=== PATIENT | male | born 1965 ===

== ENCOUNTER 2017-09-24 13:39 | Emergency (ER) | payer OTHER ==
[2017-09-24 13:40] VITALS: BMI 32.4
[2017-09-24 14:18] VITALS: TEMP 98.9
--- NOTE | 2017-09-24 15:13 | ED PDOC ---
Arrival/HPI - General Chief Complaint: Upper Extremity Problem/Injury Time Seen by Provider: 09/24/17 14:18 Historian: Patient - History of Present Illness Narrative History of Present Illness (Text): 09/24/17 15:12 52yo male with Past medical history of RA present with 2weeks history of right 3rd finger swelling and pain. He also report one year history of b/l foot pain and swelling. States he had similar finger swelling on his left hand months ago. states he was given a steroid injection on his foot by his neighborhood conservation officer in the past and the pain resolved for a while and then started again. He has not been taking any medication. 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 He admits to calf pain with ambulation. Denies fever, redness, trauma, chest pain, shortness of breath, diaphoresis, dizziness, recent travel, any other complaint. Past Medical History - Provider Review Nursing Documentation Reviewed: Yes - Past History Past History: No Previous - Infectious Disease Hx of Infectious Diseases: None - Tetanus Immunization Tetanus Immunization: Unknown - Cardiac Hx Cardiac Disorders: No - Pulmonary Hx Respiratory Disorders: No - Neurological Hx Neurological Disorder: No - HEENT Hx HEENT Disorder: No - Renal Hx Renal Disorder: No - Endocrine/Metabolic Hx Endocrine Disorders: No - Hematological/Oncological Hx Blood Disorders: No Hx Blood Transfusions: No Hx Blood Transfusion Reaction: No - Integumentary Hx Dermatological Disorder: No - Musculoskeletal/Rheumatological Hx Musculoskeletal Disorders: Yes Hx Arthritis: Yes Hx Gout: Yes - Gastrointestinal Hx Gastrointestinal Disorders: No - Genitourinary/Gynecological Hx Genitourinary Disorders: No - Psychiatric Hx Psychophysiologic Disorder: No Hx Emotional Abuse: No Hx Physical Abuse: No Hx Substance Use: No - Past Surgical History Past Surgical History: No Previous - Anesthesia Hx Anesthesia Reactions: No Hx Malignant Hyperthermia: No - Suicidal Assessment Feels Threatened In Home Enviroment: No Family/Social History - Physician Review Nursing Documentation Reviewed: Yes Family/Social History: Unknown Family HX Smoking Status: Former Smoker Hx Alcohol Use: No Hx Substance Use: No Allergies/Home Meds Allergies/Adverse Reactions: Allergies No Known Allergies Allergy (Verified 03/28/16 14:44) Review of Systems - Physician Review All systems were reviewed & negative as marked: Yes - Review of Systems Constitutional: Normal Eyes: Normal ENT: Normal Respiratory: Normal Cardiovascular: Normal Gastrointestinal: Normal Genitourinary Male: Normal Musculoskeletal: 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) Skin: Normal Neurological: Normal Endocrine: Normal Hemo/Lymphatic: Normal Psychiatric: Normal Physical Exam Vital Signs Reviewed: Yes Vital Signs Temp Pulse Resp BP Pulse Ox 09/24/17 18:26 69 18 114/65 100 09/24/17 17:00 71 18 116/64 100 09/24/17 15:30 74 18 118/69 100 09/24/17 14:10 98.9 F 70 16 120/73 98 Temperature: Afebrile Blood Pressure: Normal Pulse: Regular Respiratory Rate: Normal Appearance: Positive for: Well-Appearing, Non-Toxic, Comfortable Pain Distress: None Mental Status: Positive for: Alert and Oriented X 3 - Systems Exam Head: Present: Atraumatic, Normocephalic Pupils: Present: PERRL Extroacular Muscles: Present: EOMI Conjunctiva: Present: Normal Mouth: Present: Moist Mucous Membranes Neck: Present: Normal Range of Motion Respiratory/Chest: Present: Clear to Auscultation, Good Air Exchange. No: Respiratory Distress, Accessory Muscle Use Cardiovascular: Present: Regular Rate and Rhythm, Normal S1, S2. No: Murmurs Abdomen: Present: Normal Bowel Sounds. No: Tenderness, Distention, Peritoneal Signs Back: Present: Normal Inspection Upper Extremity: Present: Normal ROM, NORMAL PULSES, Swelling (Right 3rd PIP joint), Neurovascularly Intact. No: Cyanosis, Edema, Tenderness, Temperature Abnormalties, Deformity Lower Extremity: Present: Normal Inspection, CALF TENDERNESS (B/L leg), NORMAL PULSES, Normal ROM. No: Edema, Tenderness, Swelling, Erythema, Temperature Abnormalties Neurological: Present: GCS=15, CN II-XII Intact, Speech Normal Skin: Present: Warm, Dry, Normal Color. No: Rashes Psychiatric: Present: Alert, Oriented x 3, Normal Insight, Normal Concentration Medical Decision Making ED Course and Treatment: 09/24/17 18:33 PT in Emergency department for stated history. He had no pain in Emergency department, but prominent swelling of the left 3rd pip was noted. He had previous history of similar symptom on his foot and left hand in the past. No erythema. No warmth. No sign of infection was noted. Lab was unremarkable. ESR was elevated - 40. this indicates exacerbation of pt' s RA. He was given prednisone in Emergency department. He have a neighborhood conservation officer and was advised to f/u with the neighborhood conservation officer. - Lab Interpretations Lab Results: 09/24/17 15:00 09/24/17 15:00 Lab Results 09/24/17 15:00: Sodium 141, Potassium 4.0, Chloride 108 H, Carbon Dioxide 25, Anion Gap 12, BUN 13, Creatinine 0.6 L, Est GFR ( Amer) > 60, Est GFR ( Non-Af Amer) > 60, Random Glucose 100, Calcium 9.2, Total Bilirubin 0.5, AST 33 , ALT 32, Alkaline Phosphatase 89, Total Protein 7.5, Albumin 4.1, Globulin 3.5 , Albumin/Globulin Ratio 1.2 09/24/17 15:00: WBC 7.6, RBC 4.56, Hgb 13.5 L, Hct 40.4 L, MCV 88.6, MCH 29.6, MCHC 33.4, RDW 13.8, Plt Count 248, MPV 10.4, Gran % 67.2, Lymph % (Auto) 24.4, Garza % (Auto) 6.8 H, Eos % (Auto) 1.3 L, Baso % (Auto) 0.3, Gran # 5.12, Lymph # 1.9, Garza # 0.5, Eos # 0.1, Baso # 0.02, ESR 40 H - RAD Interpretation Radiology Orders: 09/24/17 14:41 DUPLEX LOWER EXTRM VEIN BILAT [US] Stat - Medication Orders Current Medication Orders: Discontinued Medications Prednisone (Prednisone Tab) 40 mg PO STAT STA Stop: 09/24/17 17:44 Disposition/Present on Arrival - Present on Arrival Any Indicators Present on Arrival: No History of DVT/PE: No History of Uncontrolled Diabetes: No Urinary Catheter: No History of Decub. Ulcer: No History Surgical Site Infection Following: None - Disposition Have Diagnosis and Disposition been Completed?: Yes Diagnosis: Rheumatoid arthritis flare Disposition: HOME/ ROUTINE Disposition Time: 17:45 Patient Plan: Discharge Patient Problems: Current Active Problems Problem Status Onset Rheumatoid arthritis flare Acute Condition: STABLE Discharge Instructions (ExitCare): Rheumatoid Arthritis (ED) Additional Instructions: Follow up with your doctor/neighborhood conservation officer Return to Emergency department for any new or worsening symptoms Prescriptions: predniSONE [predniSONE Tab] 5 mg PO DAILY #5 tab Referrals: Obed Rivero, [Primary Care Provider] - Follow up with primary Forms: [employer] ([place]i)
[2017-09-24 15:18] LABS: BASO # 0.02 K/mm3 (0.0-2.0); BASO % 0.3 % (0.0-3.0); EOS # 0.1 (0.0-0.7); EOS % 1.3 % (1.5-5.0); GRAN # 5.12 (1.4-6.5); GRAN % 67.2 % (50.0-68.0); HEMATOCRIT 40.4 % (42.0-52.0); LYMPH # 1.9 (1.2-3.4); LYMPH % 24.4 % (22.0-35.0); MEAN CELL VOLUME 88.6 fl (80.0-105.0); MEAN CORPUSCULAR HEMOGLOBIN 29.6 pg (25.0-35.0); MEAN CORPUSCULAR HGB CONC 33.4 g/dl (31.0-37.0); MEAN PLATELET VOLUME 10.4 fl (7.0-11.0); MONO # 0.5 (0.1-0.6); MONO % 6.8 % (1.0-6.0); RED CELL DISTRIBUTION WIDTH 13.8 % (11.5-14.5); WHITE BLOOD COUNT 7.6 10^3/ul (4.5-11.0)
[2017-09-24 15:25] LABS: ALB/GLOB RATIO 1.2 (1.1-1.8); ALKALINE PHOSPHATASE 89 U/L (38-126); ALT/SGPT 32 U/L (7-56); AST/SGOT 33 U/L (17-59); BILIRUBIN,TOTAL 0.5 mg/dL (0.2-1.3); BLOOD UREA NITROGEN 13 mg/dL (7-21); CALCIUM 9.2 mg/dL (8.4-10.5); CARBON DIOXIDE 25 mmol/L (21-33); CHLORIDE 108 mmol/L (98-107); GFR AFRICAN-AMERICAN > 60; GLUCOSE,RANDOM 100 mg/dL (70-110); SODIUM 141 mmol/L (132-148); TOTAL PROTEIN 7.5 g/dL (5.8-8.3)
[2017-09-24 15:39] VITALS: RESP 18; O2SAT 100
--- NOTE | 2017-09-24 16:37 | US ---
HISTORY: Leg pain and swelling. Evaluate for DVT PHYSICIAN(S): James Calvin MD. TECHNIQUE: Duplex sonography and color-flow Doppler with graded compression were used to evaluate the deep venous systems of both lower extremities. FINDINGS: The visualized deep venous systems of both lower extremities are sonographically normal and compressible. Normal wave forms and augmentation are seen. There is no sonographic evidence for deep venous thrombosis in the visualized segments of both lower extremities. IMPRESSION: No sonographic evidence for deep venous thrombosis in the visualized segments of both lower extremities.
[2017-09-24 18:26] VITALS: BP 114/65; PULSE 69
== END 2017-09-24 18:30 | disposition home or self-care (01) ==
LOC: ED 13:39
DX: M06.9 Rheumatoid arthritis, unspecified (principal)